=== PATIENT | female | born 1990 | race Caucasian/White ===

== ENCOUNTER 2019-11-01 23:25 | Inpatient (IN) | payer BC ==
[~2019-11-01] VITALS: Ht 154.9 cm; Wt 90.4 kg
--- NOTE | 2019-11-01 23:35 | PHYS DOC ---
Past History Past Medical History: Asthma General Adult EDM: Chief Complaint: ASTHMA HPI: HPI: ".. I am...having....real...problems....with....my..........asthma....." Patient is a 29 year old female who presents with above hx and complaints of asthma exacerbation. Patient seen previously at for similar presentation. Patient does have a history of asthma since age 6. Patient does not know her best peak flow. Patient has been using her asthma meds as directed. Not currently on any steroids. No recent travel. No specific ill contacts. No history immunosuppression. Patient has approximately 1-3 exacerbations per year. No previous episodes of intubation for asthma exacerbations. Patient obviously in respiratory distress with inability to speak in sentences. Is auto peeping. Does have diffuse wheezes throughout and intercostal retractions. Patient remains in a tripod positioning during exam. Patient has somewhat intractable dry nonproductive cough. Review of Systems: Review of Systems: Constitutional: Denies fever or chills Eyes: Denies change in visual acuity HENT: Denies nasal congestion or sore throat Respiratory: Complains of cough and shortness of breath Cardiovascular: Denies chest pain or edema GI: Denies abdominal pain, nausea, vomiting, bloody stools or diarrhea : Denies dysuria Musculoskeletal: Denies back pain or joint pain Integument: Denies rash Neurologic: Denies headache, focal weakness or sensory changes Endocrine: Denies polyuria or polydipsia Lymphatic: Denies swollen glands Psychiatric: Denies depression or anxiety Heart Score: HEART Score for Chest Pain: HEART Score for Chest Pain Response (Comments) Value History Slighlty/Non-Suspicious 0 ECG Nonspecific Repolarizatio 1 Age < 45 0 Risk Factors No Risk Factors 0 Troponin < Normal Limit 0 Total 1 Risk Factors: Risk Factors: DM, Current or recent (<one month) smoker, HTN, HLP, family history of CAD, obesity. Risk Scores: Score 0 - 3: 2.5% MACE over next 6 weeks - Discharge Home Score 4 - 6: 20.3% MACE over next 6 weeks - Admit for Clinical Observation Score 7 - 10: 72.7% MACE over next 6 weeks - Early Invasive Strategies Family History: Family History: Noncontributory to presentation Current Medications: Current Meds: Current Medications Medications (Trade) Dose Ordered Sig/Tamiko Start Time Stop Time Status Last Admin Dose Admin Albuterol Sulfate (Ventolin Hfa Inhaler) 2 puff 1X ONCE 11/01/19 23:45 11/01/19 23:46 UNV Prednisone (Prednisone) 50 mg 1X ONCE 11/01/19 23:45 11/01/19 23:46 UNV Allergies: Allergies: No known drug allergies Physical Exam: PE: Constitutional: Well developed, well nourished, in acute distress, non-toxic appearance. [] HENT: Normocephalic, atraumatic, bilateral external ears normal, oropharynx moist, no oral exudates, nose normal. [] Eyes: PERRLA, EOMI, conjunctiva normal, no discharge. [] Neck: Normal range of motion, no tenderness, supple, no stridor. [] Cardiovascular: Tachycardia heart rate regular rhythm, no murmur [] Lungs & Thorax: Bilateral breath sounds equal apex with scattered wheezing throughout on auscultation [. The patient has] tripod positioning. Intercostal retractions Abdomen: Bowel sounds normal, soft, no tenderness, no masses, no pulsatile masses. [] Skin: Warm, dry, no erythema, no rash. [] Back: No tenderness, no CVA tenderness. [] Extremities: No tenderness, no cyanosis, no clubbing, ROM intact, no edema. [] No cording appreciated Neurologic: Alert and oriented X 3, normal motor function, normal sensory function, no focal deficits noted. [] Psychologic: Affect anxious, judgement normal, mood normal. [] EKG: EKG: My interpretation EKG shows a sinus tachycardia at 110 bpm. Occasional PAC. No findings of acute STEMI of contralateral changes. [] Radiology/Procedures: Radiology/Procedures: [address] [address] IMAGING REPORT Signed PATIENT: SALO BERMUDEZ ACCOUNT: [id number] : 1990 LOCATION: ER AGE: 29 SEX: F EXAM STATUS: REG ER ORD. PHYSICIAN: DEANNA BARTHOLOMEW MD REASON: coughing PROCEDURE: CHEST PA & LATERAL CHEST PA LATERAL INDICATION: coughing COMPARISON STUDY: None. FINDINGS: Lungs: Normal lung volume. Bilateral ill-defined opacities. Pleura: No pleural effusion or pneumothorax. Heart and Mediastinum: The cardiomediastinal silhouette is normal. The great vessels of the thorax are normal. IMPRESSION: Bilateral ill-defined opacities, which may represent an infectious/inflammatory process. Electronically signed by: Luna Lowry MD (11/02/2019 7:07 AM) [id number] DICTATED AND SIGNED BY: LUNA LOWRY MD DATE: 11/02/19706 CC: FELIPE BLAKE MD; DEANNA BARTHOLOMEW MD ~ [][place] [address] IMAGING REPORT Signed PATIENT: SAOL BERMUDEZ ACCOUNT: [id number] : 1990 LOCATION: ER AGE: 29 SEX: F EXAM STATUS: REG ER ORD. PHYSICIAN: DEANNA BARTHOLOMEW MD REASON: COUGH, HYPOXIA, ELEV. D-DIMER, OMNI 350, 75ml PROCEDURE: CT ANGIOGRAPHY CHEST INDICATION: Reason: COUGH, HYPOXIA, ELEV. D-DIMER, OMNI 350, 75ml / Spl. Instructions: / History: COMPARISON: None. TECHNIQUE: Axial CT images obtained through the chest. Intravenous contrast utilized. Angiogram 3D images processed per protocol. One or more of the following individualized dose reduction techniques were utilized for this examination: 1. Automated exposure control; 2. Adjustment of the mA and/or kV according to patient size; 3. Use of iterative reconstruction technique. FINDINGS: Bilateral pulmonic opacities including patchy groundglass and nodular component. No evidence of pneumothorax. There are some scattered prominent lymph nodes in the mediastinum. Ascending thoracic aorta is largely obscured by motion without aneurysm seen in descending thoracic aorta. No embolus in the main, right main or left main pulmonary artery. Nondiagnostic or peripherally secondary to severe motion. Lucency through right third rib anteriorly with some suspected callus formation. IMPRESSION: No embolus in the main, right main or left main pulmonary artery but nondiagnostic more peripherally secondary to severe motion. Multifocal opacities throughout the bilateral lungs which could be secondary to multifocal infiltrate. Viral, atypical as well as bacterial infection could have this appearance. Lucency through right third rib with some suspected callus formation. Correlate with history of trauma to the region since a nondisplaced fracture could have this appearance. Electronically signed by: Tori Bocanegra MD (11/02/2019 4:56 AM) [id number] DICTATED AND SIGNED BY: TORI BOCANEGRA MD DATE: 11/02/19 0456 CC: FELIPE BLAKE MD; DEANNA BARTHOLOMEW MD ~ Course & Med Decision Making: Course & Med Decision Making Pertinent Labs and Imaging studies reviewed. (See chart for details) Patient presentation, testing and treatment plan discussed with Dr. Blake. 00:39 COVID test pending. Plan admission for asthma exacerbation. (Pt.not given a room because fears of nursing shortage with change of shift 0700. ) Pt. still awaiting room assignment at end of my shift 0600. Pt. endorsed to Dr. Chacko if problems before transfer [facility]. Impression: 1. Asthma exacerbation 2. Tachycardia 3. Leukocytosis 13.5 4. Elevated d-dimer 0.99 5. Hypo-magnesium 1.6 6. Elevated direct and total bilirubin 0.3/1.2 7. Viral Pneumonia 8, Respiratory Failure- ( Out pt. tx.failure) []Critical care 50 min. Dragon Disclaimer: Dragon Disclaimer: This electronic medical record was generated, in whole or in part, using a voice recognition dictation system. Departure Departure: Disposition: 01 HOME/RESIDENCE PRIOR TO ADM Condition: STABLE Referrals: FELIPE BLAKE MD (PCP) Justification of Admission: Justification of Admission: Justification of Admission Dx: Yes Comments: Respiratory failure- Asthma Exacerbation Dragon Disclaimer This chart was dictated in whole or in part using Voice Recognition software in a busy, high-work load, and often noisy Emergency Department environment. It may contain unintended and wholly unrecognized errors or omissions. Dragon Disclaimer This chart was dictated in whole or in part using Voice Recognition software in a busy, high-work load, and often noisy Emergency Department environment. It may contain unintended and wholly unrecognized errors or omissions. DEANNA BARTHOLOMEW MD Nov 01, 2019 23:35
[2019-11-01] MEDS ORDERED: ALBUTEROL SULFATE 8GM INHALER. INH ONE (23:45)
[2019-11-01] MEDS ORDERED: methylPREDNISolone SOD SUCC PF 125 MG/2 ML VIAL. ONE (23:51)
[2019-11-01] MEDS ORDERED: diphenhydrAMINE ORAL ELIXIR 12.5 MG/5 ML ML ONE (23:56)
[2019-11-02] MEDS ORDERED: methylPREDNISolone SOD SUCC PF 125 MG/2 ML VIAL. IV ONE
[2019-11-02] MEDS ORDERED: predniSONE 10 MG TABLET PO ONE
[2019-11-02 00:13] LABS: BARBITURATES NEG (NEG); BENZODIAZEPINES NEG (NEG); CANNABINOIDS NEG (NEG); COCAINE NEG (NEG); METHADONE NEG (NEG); OPIATES NEG (NEG); PHENCYCLIDINE NEG (NEG)
[2019-11-02] MEDS ORDERED: diphenhydrAMINE ORAL ELIXIR 12.5 MG/5 ML ML PO ONE (00:15)
[2019-11-02 00:16] LABS: AMPHETAMINE/METHAMPHETAMINE NEG (NEG)
[2019-11-02 00:21] LABS: BASO # 0.1 x10^3/uL (0.0-0.2); BASO % 1 % (0-3); CALCIUM 10.4 mg/dL (8.5-10.1); CREATININE 1.1 mg/dL (0.6-1.0); EOS # 0.7 x10^3/uL (0.0-0.7); EOS % 5 % (0-3); GFR 59.1; HEMATOCRIT 37.6 % (36.0-47.0); HEMOGLOBIN 12.7 g/dL (12.0-15.5); LYMPH # 2.7 x10^3/uL (1.0-4.8); LYMPH % 20 % (24-48); MEAN CORPUSCULAR HEMOGLOBIN 29 pg (25-35); MEAN CORPUSCULAR HGB CONC 34 g/dL (31-37); MEAN CORPUSCULAR VOLUME 87 fL (79-100); MONO # 0.9 x10^3/uL (0.0-1.1); MONO % 7 % (0-9); NEUT # 9.1 x10^3uL (1.8-7.7); NEUT % 67 % (31-73); PLATELET COUNT 259 x10^3/uL (140-400); POTASSIUM 3.5 mmol/L (3.5-5.1); RED BLOOD COUNT 4.34 x10^6/uL (3.50-5.40); RED CELL DISTRIBUTION WIDTH 13.7 % (11.5-14.5); WHITE BLOOD COUNT 13.5 x10^3/uL (4.0-11.0)
[2019-11-02 00:23] LABS: BACTERIA,URINE 0 /HPF (0-FEW); BILIRUBIN,URINE NEG (NEG); CLARITY,URINE HAZY; COLOR,URINE YELLOW; GLUCOSE,URINE NEG (NEG); NITRITE,URINE NEG (NEG); RBC,URINE 0 /HPF (0-2); UROBILINOGEN,URINE 0.2 mg/dL (0.2 mg/dL); WBC,URINE OCC /HPF (0-4)
[2019-11-02 00:24] LABS: SQUAMOUS EPITHELIAL CELL,UR MANY /LPF
[2019-11-02] MEDS ORDERED: IV RINGERS SOLUTION,LACTATED 1,000 ML IV SCH (00:30)
[2019-11-02 00:33] LABS: DIRECT BILIRUBIN 0.3 mg/dL (0.0-0.2); MAGNESIUM 1.7 mg/dL (1.8-2.4); TOTAL BILIRUBIN 1.2 mg/dL (0.2-1.0); TOTAL PROTEIN 7.4 g/dL (6.4-8.2)
[2019-11-02] MEDS ORDERED: AZITHROMYCIN 250 MG TABLET. ONE (00:38)
[2019-11-02] MEDS ORDERED: ONDANSETRON PF 4 MG/2 ML VIAL. IVP PRN (00:45)
[2019-11-02] MEDS ORDERED: ACETAMINOPHEN 325 MG TABLET PO PRN (00:45)
[2019-11-02] MEDS ORDERED: IOHEXOL 350 MG/ML 100 ML VIAL. IV ONE (01:00)
[2019-11-02] MEDS ORDERED: ENOXAPARIN ** NOTE DOSE ** SYRINGE SQ ONE (01:00)
[2019-11-02] MEDS ORDERED: CONTRAST GIVEN. MC PRN (01:00)
[2019-11-02] MEDS ORDERED: ALBUTEROL SULFATE 2.5 MG/3 ML NEBU. NEB PRN (01:00)
[2019-11-02] MEDS ORDERED: MAGNESIUM SULFATE 2GM 50 ML IV ONE (01:00)
[2019-11-02] MEDS ORDERED: AZITHROMYCIN 250 MG TABLET. PO ONE (01:00)
[2019-11-02] MEDS ORDERED: ONDANSETRON PF 4 MG/2 ML VIAL. IVP ONE (01:00)
[2019-11-02] MEDS ORDERED: IPRATRPIUM/ALBUTEROL 0.5/2.5MG 3 ML NEBU. NEB ONE (01:00)
--- NOTE | 2019-11-02 01:09 | EKG ---
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
[2019-11-02 01:54] LABS: INFLUENZA A PATIENT NEGATIVE (NEGATIVE); INFLUENZA B PATIENT NEGATIVE (NEGATIVE)
--- NOTE | 2019-11-02 04:59 | RAD ---
INDICATION: Reason: COUGH, HYPOXIA, ELEV. D-DIMER, OMNI 350, 75ml / Spl. Instructions: / History: COMPARISON: None. TECHNIQUE: Axial CT images obtained through the chest. Intravenous contrast utilized. Angiogram 3D images processed per protocol. One or more of the following individualized dose reduction techniques were utilized for this examination: 1. Automated exposure control; 2. Adjustment of the mA and/or kV according to patient size; 3. Use of iterative reconstruction technique. FINDINGS: Bilateral pulmonic opacities including patchy groundglass and nodular component. No evidence of pneumothorax. There are some scattered prominent lymph nodes in the mediastinum. Ascending thoracic aorta is largely obscured by motion without aneurysm seen in descending thoracic aorta. No embolus in the main, right main or left main pulmonary artery. Nondiagnostic or peripherally secondary to severe motion. Lucency through right third rib anteriorly with some suspected callus formation. IMPRESSION: No embolus in the main, right main or left main pulmonary artery but nondiagnostic more peripherally secondary to severe motion. Multifocal opacities throughout the bilateral lungs which could be secondary to multifocal infiltrate. Viral, atypical as well as bacterial infection could have this appearance. Lucency through right third rib with some suspected callus formation. Correlate with history of trauma to the region since a nondisplaced fracture could have this appearance. Electronically signed by: Lenin Bocanegra MD (11/02/2019 4:56 AM) [id number]
[2019-11-02] MEDS ORDERED: IPRATRPIUM/ALBUTEROL 0.5/2.5MG 3 ML NEBU. ONE (05:17)
[2019-11-02] MEDS: IPRATRPIUM/ALBUTEROL 0.5/2.5MG 3 ML NEBU. NEB SCH ×4 (05:20→20:00)
--- NOTE | 2019-11-02 07:09 | RAD ---
CHEST PA LATERAL INDICATION: coughing COMPARISON STUDY: None. FINDINGS: Lungs: Normal lung volume. Bilateral ill-defined opacities. Pleura: No pleural effusion or pneumothorax. Heart and Mediastinum: The cardiomediastinal silhouette is normal. The great vessels of the thorax are normal. IMPRESSION: Bilateral ill-defined opacities, which may represent an infectious/inflammatory process. Electronically signed by: Ananda Hand MD (11/02/2019 7:07 AM) [id number]
[2019-11-02] MEDS ORDERED: BUDESONIDE 0.5 MG/2 ML NEBU NEB ONE (08:00)
[2019-11-02] MEDS: methylPREDNISolone SOD SUCC PF 125 MG/2 ML VIAL. IV SCH (08:10)
[2019-11-02] MEDS ORDERED: IV NORMAL SALINE 1,000ML 1,000 ML IV ONE (11:15)
[2019-11-02 11:48] LABS: CALCIUM 9.9 mg/dL (8.5-10.1); CREATININE 1.3 mg/dL (0.6-1.0); GFR 48.8; POTASSIUM 4.1 mmol/L (3.5-5.1)
[2019-11-02 13:45] LABS: BGAS PH 7.4 (7.35-7.45)
[2019-11-02 16:55] VITALS: BP 137/78
--- NOTE | 2019-11-02 18:00 | NUR ---
DR. BLAKE NOTIFIED OF PT'S ARRIVAL.
--- NOTE | 2019-11-02 18:09 | NUR ---
The patient, SALO BERMUDEZ, 29 y/o, F admitted by FELIPE BLAKE MD, was given written information regarding hospital policies, unit procedures and contact persons. Valuables were checked and LEFT WITH PATIENT AT BEDSIDE. PT ARRIVED ON 15 L ON A NRB MASK. THEN PT WAS SWITCHED OVER TO 15 L NC TO SEE IF SHE WAS ABLE TO TOLERATE WELL. PT DID TOLERATE WELL AND REMAINED AT 94%. PT'S 02 DECRESED TO 8 L NC AND WILL CTM.
[2019-11-02 19:58] VITALS: BP 110/70
[2019-11-02] MEDS: AZITHROMYCIN 250 MG TABLET. PO SCH (20:44)
[2019-11-03] MEDS: IPRATRPIUM/ALBUTEROL 0.5/2.5MG 3 ML NEBU. NEB SCH ×2 (05:22→21:30)
[2019-11-03 06:20] VITALS: BP 108/74
[2019-11-03 06:23] LABS: BASO % 0 % (0-3); EOS % 0 % (0-3); HEMATOCRIT 35.3 % (36.0-47.0); HEMOGLOBIN 11.7 g/dL (12.0-15.5); LYMPH # 1.9 x10^3/uL (1.0-4.8); LYMPH % 10 % (24-48); MEAN CORPUSCULAR HEMOGLOBIN 29 pg (25-35); MEAN CORPUSCULAR HGB CONC 33 g/dL (31-37); MEAN CORPUSCULAR VOLUME 88 fL (79-100); MONO # 0.9 x10^3/uL (0.0-1.1); MONO % 5 % (0-9); NEUT # 17.2 x10^3uL (1.8-7.7); NEUT % 86 % (31-73); PLATELET COUNT 264 x10^3/uL (140-400); RED BLOOD COUNT 4.01 x10^6/uL (3.50-5.40); RED CELL DISTRIBUTION WIDTH 13.7 % (11.5-14.5); WHITE BLOOD COUNT 20.1 x10^3/uL (4.0-11.0)
[2019-11-03 06:31] LABS: CALCIUM 8.3 mg/dL (8.5-10.1); POTASSIUM 4.3 mmol/L (3.5-5.1)
[2019-11-03 07:17] LABS: % LYMPHS 7 % (24-48); % MONOS 3 % (0-10); % SEGS 90 % (35-66)
[2019-11-03 07:18] LABS: PLT ESTIMATE ADEQUATE (ADEQUATE); TOXIC GRANULATION PRESENT
[2019-11-03 07:19] LABS: POLYCHROMASIA PRESENT
--- NOTE | 2019-11-03 08:10 | NUR ---
patient pending COVID test result, requires contact and airborne precautions.
[2019-11-03] MEDS: methylPREDNISolone SOD SUCC PF 125 MG/2 ML VIAL. IV SCH (08:14)
[2019-11-03] MEDS: LACTOBACILLUS RHAMNOSUS GG 1 CAPSULE. PO SCH ×2 (08:14→20:35)
[2019-11-03] MEDS ORDERED: ALBUTEROL SULFATE 8GM INHALER. INH PRN (09:45)
--- NOTE | 2019-11-03 09:48 | HP ---
ADMIT DATE: 11/03/2019 HISTORY OF PRESENT ILLNESS: A 29-year-old female came in through the Emergency Room. She was extremely short of breath and appeared to be having problems with her asthma. The patient has had asthma since the age of 6 and has had multiple episodes of this. Apparently, she has been evaluated down at for this. She has had no previous intubations needed. The patient was seen for a long time in the ER due to a lack of beds up on the floor. In any case, the patient was noting using accessory muscles and having difficulty breathing and becoming increasingly fatigued with her breathing efforts. PAST MEDICAL HISTORY: Respiratory disease, asthma, pneumonia. Unfortunately, she smokes, smoking cessation 10/29/2019. ALLERGIES: The patient has no known drug allergies. SOCIAL HISTORY: She denies heavy drug use. She does smoke. Denies alcohol. Neurologically stable. She is a full code. REVIEW OF SYSTEMS: Increased shortness of breath, fatigue and using accessory muscles. Denies headaches, visual changes, blurred vision, double vision, chest pain, abdominal pain. Denies any melena, hematochezia or hematemesis and neurologically intact. PHYSICAL EXAMINATION: GENERAL: The patient otherwise on exam is a very pleasant white female, somewhat short of breath with talking. VITAL SIGNS: Blood pressure 110/70, respiratory rate 22, pulse 91, afebrile. HEENT: The patient's head was atraumatic, normocephalic. Eyes: PERRLA without jaundice. The mouth and throat were normal. NECK: Supple, no JVD or thyromegaly. LUNGS: Diminished throughout, poor movement of air with inspiratory and expiratory wheezes. CARDIOVASCULAR: Regular sinus rhythm. She did have a heart rate upwards and close to 120. ABDOMEN: Soft, nontender, no rebound or guarding. Positive bowel sounds, no hepatosplenomegaly noted. EXTREMITIES: No clubbing, cyanosis, nor edema. NEUROLOGIC: The patient was alert and oriented x 3. LABORATORY DATA: CTA negative. Did have a positive D-dimer. The patient also low magnesium 1.7, total bilirubin 1.2, creatinine 5.09. Otherwise, unremarkable. Creatinine up to 1.3, down to 1. Blood sugars a little bit on the high side after steroid use in the Emergency Room where they gave her IV steroids and aggressive pulmonary toilet. She has beta hCG negative, flu and strep negative. Blood gases were reasonable. IMPRESSION: Acute exacerbation of asthma with use of accessory muscles, acute bronchitis with multifocal opacities throughout both lungs. Possible viral atypical, COVID-19 pending. PLAN: Continue on oral MDI inhaler steroids, aggressive pulmonary toilet, make further evaluation on her as indicated. She is not known if she has been around anybody who has had the COVID virus. FELIPE BLAKE MD DR: BREANN/kathleen JOB#: [id number] / [id number]
[2019-11-03 11:00] VITALS: BP 111/74
[2019-11-03] MEDS: ALBUTEROL SULFATE 8GM INHALER. INH SCH ×3 (13:00→20:35)
[2019-11-03 13:55] VITALS: BP 109/77
[2019-11-03] MEDS ORDERED: methylPREDNISolone SOD SUCC PF 40 MG/ML VIAL. IV SCH (14:00)
[2019-11-03 20:22] VITALS: BP 122/79
[2019-11-03] MEDS: AZITHROMYCIN 250 MG TABLET. PO SCH (20:35)
[2019-11-03 23:09] VITALS: BP 100/60
--- NOTE | 2019-11-04 04:09 | NUR ---
Shift Note: Pt a/o x4, VSS with 4 liters oxygen via NC, pt did request humidification d/t nose bleeds, humidification applied, pt feeling more SOA at start of shift, changed scheduled inhaler to duonebs QID per physician orders, inhaler continues to be avail prn. Pt feeling better but continues to have SOA, minimal breath sounds to left side and requires oxygen to maintain saturations >92%. Addendum: 11/04/19 at 0412 by EAGLE JACOBSEN RN hift Note: Pt a/o x4, VSS with 4 liters oxygen via NC, pt did request humidification d/t nose bleeds, humidification applied, pt feeling more SOA at start of shift, changed scheduled inhaler to duonebs QID per physician orders, inhaler continues to be avail prn. Pt feeling better but continues to have SOA, minimal breath sounds to left side and requires oxygen to maintain saturations >92%. Covid results are negative.
[2019-11-04] MEDS: IPRATRPIUM/ALBUTEROL 0.5/2.5MG 3 ML NEBU. NEB SCH ×4 (04:54→20:25)
[2019-11-04 05:42] VITALS: BP 116/74
[2019-11-04 06:16] LABS: BASO % 0 % (0-3); EOS % 0 % (0-3); HEMATOCRIT 34.9 % (36.0-47.0); LYMPH # 2.6 x10^3/uL (1.0-4.8); LYMPH % 18 % (24-48); MEAN CORPUSCULAR HEMOGLOBIN 30 pg (25-35); MEAN CORPUSCULAR HGB CONC 34 g/dL (31-37); MEAN CORPUSCULAR VOLUME 88 fL (79-100); MONO # 0.8 x10^3/uL (0.0-1.1); MONO % 5 % (0-9); NEUT # 11.4 x10^3uL (1.8-7.7); NEUT % 77 % (31-73); PLATELET COUNT 255 x10^3/uL (140-400); RED BLOOD COUNT 3.98 x10^6/uL (3.50-5.40); RED CELL DISTRIBUTION WIDTH 13.8 % (11.5-14.5); WHITE BLOOD COUNT 14.8 x10^3/uL (4.0-11.0)
[2019-11-04 06:23] LABS: CALCIUM 8.6 mg/dL (8.5-10.1); POTASSIUM 4.1 mmol/L (3.5-5.1)
[2019-11-04] MEDS: methylPREDNISolone SOD SUCC PF 40 MG/ML VIAL. IV SCH (08:00)
[2019-11-04] MEDS: LACTOBACILLUS RHAMNOSUS GG 1 CAPSULE. PO SCH ×2 (08:00→20:19)
[2019-11-04] MEDS: ENOXAPARIN 40 MG/0.4 ML SYRINGE. SQ SCH (10:00)
[2019-11-04 11:25] VITALS: BP 145/83
[2019-11-04 15:24] VITALS: BP 144/83
--- NOTE | 2019-11-04 18:22 | NUR ---
PT is still having shortness of breath with exertion, have not been able to titrate oxygen at this point will continue to monitor. Derek LOONEY
--- NOTE | 2019-11-04 18:32 | PN ---
DATE: SUBJECTIVE: A 29-year-old female in with acute exacerbation of asthma, has had multiple bouts of it in the past. She is resting comfortably, but still wheezing, still tight, still requiring 2-3 liters of oxygen. OBJECTIVE: VITAL SIGNS: Otherwise, blood pressure 145/83, respiratory rate 18, pulse 82, afebrile. She is on 4 liters presently at 94%, desaturates when she walks. Still receiving IV Solu-Medrol. White count 14, hemoglobin 12, hematocrit 34. Electrolytes were basically all within range. GENERAL: The patient is alert and oriented. LUNGS: Show expiratory wheezes in all lobes. CARDIOVASCULAR: Regular sinus rhythm. ABDOMEN: Soft, nontender, no rebound or guarding. Positive bowel sounds. No hepatosplenomegaly was noted. EXTREMITIES: No clubbing, cyanosis, nor edema. NEUROLOGIC: The patient is stable. IMPRESSION: Acute exacerbation of chronic obstructive pulmonary disease, asthma with probable multi-lobe pneumonia, COVID-19 negative. Continue to monitor her accordingly and continue with antibiotics and aggressive pulmonary toilet. FELIPE BLAKE MD DR: BREANN/kathleen JOB#: [id number] / [id number]
[2019-11-04 19:28] VITALS: BP 135/81
[2019-11-04] MEDS: AZITHROMYCIN 250 MG TABLET. PO SCH (20:19)
[2019-11-04 23:00] VITALS: BP 105/60
[2019-11-05] MEDS: IPRATRPIUM/ALBUTEROL 0.5/2.5MG 3 ML NEBU. NEB SCH ×4 (05:15→20:55)
[2019-11-05 05:30] VITALS: BP 104/64
[2019-11-05 05:51] LABS: BASO # 0.1 x10^3/uL (0.0-0.2); BASO % 1 % (0-3); EOS % 0 % (0-3); HEMATOCRIT 37.1 % (36.0-47.0); HEMOGLOBIN 12.3 g/dL (12.0-15.5); LYMPH # 4.3 x10^3/uL (1.0-4.8); LYMPH % 34 % (24-48); MEAN CORPUSCULAR HEMOGLOBIN 29 pg (25-35); MEAN CORPUSCULAR HGB CONC 33 g/dL (31-37); MEAN CORPUSCULAR VOLUME 88 fL (79-100); MONO # 0.8 x10^3/uL (0.0-1.1); MONO % 7 % (0-9); NEUT # 7.2 x10^3uL (1.8-7.7); NEUT % 58 % (31-73); PLATELET COUNT 248 x10^3/uL (140-400); RED BLOOD COUNT 4.22 x10^6/uL (3.50-5.40); RED CELL DISTRIBUTION WIDTH 13.7 % (11.5-14.5); WHITE BLOOD COUNT 12.4 x10^3/uL (4.0-11.0)
[2019-11-05 05:58] LABS: CALCIUM 8.5 mg/dL (8.5-10.1); POTASSIUM 3.2 mmol/L (3.5-5.1)
[2019-11-05] MEDS ORDERED: POTASSIUM CHLORIDE 20 MEQ TABLET.ER. PO ONE (07:30)
[2019-11-05] MEDS: ENOXAPARIN 40 MG/0.4 ML SYRINGE. SQ SCH (09:00)
[2019-11-05] MEDS: LACTOBACILLUS RHAMNOSUS GG 1 CAPSULE. PO SCH ×2 (09:02→20:38)
[2019-11-05] MEDS: methylPREDNISolone SOD SUCC PF 40 MG/ML VIAL. IV SCH ×3 (09:02→20:38)
--- NOTE | 2019-11-05 09:49 | NUR ---
Patient was on 1L NC this morning. moved to RA and is currently 93% on RA. Will assess patient ability to walk without oxygen and if able to tolerate O2 above 90%. Pt does not appear to be SOA and states she does not feel SOA. Will continue to monitor.
--- NOTE | 2019-11-05 10:14 | NUR ---
patient 93% RA while resting. Pt attempted to walk down the [place] without oxygen with pulse ox on. pt remained about 91-94% on RA while walking but refused to walk more than 1 minute down the hallway due to dyspnea. Joe LOONEY Addendum: 11/05/19 at 1035 by JERZY MARC RN Dr Kingsley notified
[2019-11-05] MEDS ORDERED: ELECTROLYTE (NON-ICU) PROTOCOL MC PRN (10:30)
--- NOTE | 2019-11-05 10:37 | NUR ---
solumedrol 40mg administered IV around 0900. nonadministered solumedrol dose for 1030 due to recent change from once daily to BID by physician. pt will get second dose of solumedrol tonight. Joe LOONEY
[2019-11-05 11:28] VITALS: BP 117/74
--- NOTE | 2019-11-05 12:19 | NUR ---
Dr Kingsley ordered BLE US for swelling, pt refused stating she is not swollen and does not need this test. A 2-V chest xray also ordered for follow up on patients pneumonia. Pt refusing to wear a mask outside of room per hospital protocol, xray changed to portable. Dr Kingsley aware.
--- NOTE | 2019-11-05 13:21 | RAD ---
Single view chest dated 11/05/2019. Comparison made to 11/02/2019. CLINICAL INDICATION: Shortness of breath. FINDINGS: Single upright portable exam performed. Heart and mediastinal contours are stable. There is patchy airspace disease in the lower lobes, mildly increased. There is also patchy infiltrate at the right perihilar region that has increased. Blunting of the costophrenic sulci. IMPRESSION: 1. Patchy bilateral airspace disease, mildly increased from prior study. 2. Suspected small pleural effusions. Electronically signed by: Douglas Poon MD (11/05/2019 1:18 PM) EDWARDO
[2019-11-05 16:18] VITALS: BP 123/79
--- NOTE | 2019-11-05 18:09 | NUR ---
pt has been taken off oxygen today and on RA. She is tolerating well, o2 sat at 93%. although pt refused to walk more than a minute down the hallway this morning, will pass on to retry again tomorrow for the 6 minute walk test to see how patient tolerates that. Joe LOONEY
--- NOTE | 2019-11-05 18:34 | PN ---
DATE: 11/05/2019 SUBJECTIVE: A 29-year-old female in with acute exacerbation of her asthma. She continues to have shortness of breath. She is improved; however, she still continues to have significant difficulty in moving without becoming increasingly weakened and hypoxic. The patient in turn has had aggressive therapy. She is on steroids. Her COVID-19 was negative. Her nose culture was basically unremarkable as well, although her chest x-ray showed infiltrates consistent with pneumonia. We will repeat that today. OBJECTIVE: VITAL SIGNS: Blood pressure 104/64, respiratory rate 16, pulse 69. GENERAL: Afebrile, oxygen saturation on room air approximately 91% and extremely weak, had to be held up by the wall to maintain her balance. We will continue to monitor the patient accordingly, get a repeat chest x-ray. Continue on antibiotics, aggressive pulmonary toilet. LUNGS: Diminished throughout, poor movement of air, although improved, still show poor movement of air. CARDIOVASCULAR: Regular sinus rhythm. Otherwise, alert and oriented. NEUROLOGIC: Speech fluent, spontaneous, appropriate. PLAN: Continue to monitor the patient accordingly and make further evaluation on her as indicated. IMPRESSION: Acute exacerbation of chronic obstructive pulmonary disease, asthma, type with pneumonitis of unknown etiology. FELIPE BLAKE MD DR: BREANN/kathleen JOB#: [id number] / [id number]
[2019-11-05 19:00] VITALS: BP 133/86
[2019-11-05] MEDS: AZITHROMYCIN 250 MG TABLET. PO SCH (20:38)
[2019-11-05 22:14] VITALS: BP 142/85
[2019-11-06] MEDS: IPRATRPIUM/ALBUTEROL 0.5/2.5MG 3 ML NEBU. NEB SCH (04:58)
[2019-11-06 05:58] VITALS: BP 138/86
--- NOTE | 2019-11-06 06:10 | NUR ---
Pt took shower at change of shift, Pt c/o SOA with exertion but maintained O2 sat on room air. Pt did wear mask outside of room to shower and back but complained that it is hard to wear. Pt encouraged to ambulate in room and completed 6 min walk prior to DC. Pt slept a few hours during night but up often in room with staff entered room. Pt hopeful for DC home today.
[2019-11-06] MEDS: LACTOBACILLUS RHAMNOSUS GG 1 CAPSULE. PO SCH (08:21)
[2019-11-06] MEDS: methylPREDNISolone SOD SUCC PF 40 MG/ML VIAL. IV SCH (08:21)
[2019-11-06] MEDS ORDERED: ALBU8HFA2 INH (09:15)
[2019-11-06] MEDS ORDERED: AZIT250T6 PO (09:15)
[2019-11-06] MEDS ORDERED: PRED-220 PO ×2 (09:15)
[2019-11-06] MEDS ORDERED: IPRA3AMP29 NEB (09:15)
--- NOTE | 2019-11-06 09:16 | DISCH ---
DISCHARGE ORDERS DISCHARGE MEDICATIONS: Home Meds Active Scripts Prednisone (PREDNISONE) 10 Mg Tablet, 40 MG PO UD for PREDNISONE TAPER for 12 Days, #39 TAB 0 Refills Take 3 tablets by mouth twice a day for 3 days, then take 2 tablets by mouth twice a day for 3 days, then take 1 tablet by mouth twice a day for 3 days, then take 1 tablet by mouth daily x 3 days, then stop. Prov:FELIPE BLAKE MD 11/06/19 Prednisone (PREDNISONE) 10 Mg Tablet, 10 MG PO DAILY for asthma for 28 Days, #28 TAB Prov:FELIPE BLAKE MD 11/06/19 Albuterol Sulfate (Ventolin Hfa) 8 Gm Hfa.aer.ad, 2 PUFF INH PRN Q4HRS PRN for SOA for 30 Days, #1 INHALER 3 Refills Prov:FELIPE BLAKE MD 11/06/19 Ipratropium/Albuterol Sulfate (DUONEB 0.5-3(2.5) MG/3 ML) 3 Ml Ampul.neb, 3 ML NEB RTQID for asthma for 30 Days, #120 EACH 2 Refills Prov:FELIPE BLAKE MD 11/06/19 Azithromycin (AZITHROMYCIN TABLET) 250 Mg Tablet, 250 MG PO QHS for pneumonia for 3 Days, #3 TAB Prov:FELIPE BLAKE MD 11/06/19 FELIPE BLAKE MD Nov 06, 2019 09:16
--- NOTE | 2019-11-06 10:07 | NUR ---
Pt discharging, agrees with discharge plan. Scripts given to patient. IV out, belongings with patient. Pt escorted via wheelchair to front entrance where everardo was waiting to provide transportation.
== END 2019-11-06 10:05 | disposition home or self-care (01) | DRG 193 ==
LOC: ER 23:25 → 1 SOUTH 11-02 00:30
PROVIDERS: ADMIT Family Medicine; ATTEND Family Medicine
DX: J18.9 Pneumonia, unspecified organism (principal); J96.91 Respiratory failure, unspecified with hypoxia; J44.0 Chronic obstructive pulmonary disease with (acute) lower respiratory infection; J44.1 Chronic obstructive pulmonary disease with (acute) exacerbation; J45.901 Unspecified asthma with (acute) exacerbation; E83.42 Hypomagnesemia; F17.200 Nicotine dependence, unspecified, uncomplicated; J20.9 Acute bronchitis, unspecified; Z20.828 Contact with and (suspected) exposure to other viral communicable diseases
CPT/HCPCS: 36415; 71045; 71046; 71275; 80048; 80076; 80307; 81001; 81025; 82550; 82803; 83690; 83735; 83880; 84443; 84484; 85007; 85025; 85379; 85610; 85730; 86738; 87070; 87086; 87804; 87880; 93005; 94640; 94760; 96361; 96374; J0456; J0696; J1650; J2405; J2920; J2930; J3475; J7120; J7512; J7613; Q9967; 94664; 99291-25; J7030; U0003-CS

== ENCOUNTER 2020-01-18 21:20 | Emergency (ER) | payer BC ==
[~2020-01-18] VITALS: Ht 154.9 cm; Wt 95.2 kg
[~2020-01-18 21:20] MED LIST: ALBU8HFA2 INH; AZIT250T6 PO; IPRA3AMP29 NEB; PRED-220 PO
--- NOTE | 2020-01-18 21:55 | PHYS DOC ---
Past History Past Medical History: Asthma Past Surgical History: No Surgical History Alcohol Use: None Adult General Chief Complaint Chief Complaint: SHORTNESS OF BREATH HPI HPI Patient is a 29-year-old female who presents with wheezing. Patient has longstanding history of asthma with numerous exacerbations a year, she has never been intubated in the past. Patient recently saw her primary care physician who prescribed short-term steroid burst which along with current albuterol inhaler and nebulizer, resolved her episode of acute asthma exacerbation approximately 1 month ago. Nonetheless, patient admits 4 days of worsening shortness of breath and audible wheezes. Albuterol makes better, nothing known makes worse. Patient describes feelings of chest tightness and inability to take a deep breath due to wheezing, has been afebrile without a productive cough. She denies any COVID-19 contacts. Review of Systems Review of Systems Fourteen body systems of review of systems have been reviewed. See HPI for pertinent positives and negative responses, other peter all other systems are negative, non-pertinent or non-contributory Current Medications Current Medications Current Medications Medications (Trade) Dose Ordered Sig/Tamiko Start Time Stop Time Status Last Admin Dose Admin Albuterol/ Ipratropium (Duoneb) 3 ml 1X ONCE 01/18/20 22:00 01/18/20 22:01 Prednisone (Prednisone) 50 mg 1X ONCE 01/18/20 22:00 01/18/20 22:01 Allergies Allergies Allergies Coded Allergies Type Severity Reaction Last Updated Verified No Known Drug Allergies 11/01/19 No Physical Exam Physical Exam Constitutional: Well developed, well nourished, no acute distress, non-toxic appearance. HENT: Normocephalic, atraumatic, bilateral external ears normal, oropharynx moist, no oral exudates, nose normal. Eyes: PERRLA, EOMI, conjunctiva normal, no discharge. Neck: Normal range of motion, no tenderness, supple, no stridor. Cardiovascular: Heart rate regular, sinus rhythm, no murmurs rubs or gallops Lungs & Thorax: No obvious respiratory distress, no accessory muscle usage, audible wheezing without auscultation, decreased air movements in bilateral lungs with minimal end expiratory wheezes in bilateral upper lobes Abdomen: Bowel sounds normal, soft, no tenderness, no masses, no pulsatile masses. Nonsurgical abdomen, no peritoneal signs Skin: Warm, dry, no erythema, no rash. Back: No tenderness, no CVA tenderness. Extremities: No tenderness, no cyanosis, no clubbing, ROM intact, no edema. Neurologic: Alert and oriented X 3, grossly normal motor & sensory function, no focal deficits noted. Psychologic: Affect normal, judgement normal, mood normal. Current Patient Data Vital Signs Vital Signs Date Time Temp Pulse Resp B/P (MAP) Pulse Ox O2 Delivery O2 Flow Rate FiO2 01/18/20 22:09 95 Nasal Cannula 01/18/20 21:20 97.6 111 22 166/99 (121) EKG EKG EKG ordered and evaluated by myself at 2154 hrs. as sinus tachycardia at 105 bpm, unremarkable intervals, no axis deviation, no acute ischemic findings, no STEMI Radiology/Procedures Radiology/Procedures PROCEDURE: CHEST PA & LATERAL Exam: Chest 2 view INDICATION: Shortness of breath, wheezing TECHNIQUE: Frontal and lateral views the chest Comparisons: 11/05/2019 FINDINGS: The cardiomediastinal silhouette and pulmonary vessels are within normal limits. Patchy bibasilar airspace disease particularly in the right mid and lower lung. IMPRESSION: Patchy bibasilar airspace disease. Electronically signed by: Lilia Edwards MD (01/18/2020 10:39 PM) [facility] Course & Med Decision Making Course & Med Decision Making Ambulatory and well-appearing patient seen on immediate ER arrival ABCs grossly nonconcerning Comprehensive history and physical exam obtained, subsequent diagnostic work-up ordered and reviewed 40 mg p.o. prednisone and x1 DuoNeb treatment administered with significant relief in symptomology Discussed most likely diagnosis of asthma exacerbation but there is clinical concern for pneumonia given history and radiographic findings of patchy infiltrates I discussed this might be an acute presentation of more concerning pathology and stressed importance of close PCP follow-up. She would benefit from reviewed pulmonary function testing performed at [facility] in July. I am sending patient home with 5-day 40 mg prednisone burst and 5-day course of azithromycin. I feel after this, patient would benefit from starting a maintenance inhaler daily for her asthma at the discretion of her PCP Strict return precautions were discussed with good understanding by patient, all questions and concerns addressed prior to ER departure in stable condition Dragon Disclaimer Dragon Disclaimer This electronic medical record was generated, in whole or in part, using a voice recognition dictation system. Departure Departure: Impression: Primary Impression: Pneumonia Additional Impression: Asthma Disposition: 01 DC HOME SELF CARE/HOMELESS Condition: STABLE Referrals: FELIPE BLAKE MD (PCP) Patient Instructions: Asthma, Adult, Pneumonia, Adult Additional Instructions: As discussed prior to ER departure, please call your primary care physician first thing tomorrow morning for outpatient follow-up in upcoming 1 to 5 days time Please take antibiotic and steroid prescriptions daily as instructed to complet ion As discussed, you would benefit from review of recently performed pulmonary function testing and implementation of maintenance inhaler at your PCPs discretion Strict return precautions were discussed, if any concerning signs or symptoms arise please do not hesitate to call and/or represent to our ER for evaluation It was a pleasure to take care of you this evening and I wish you a speedy recovery Scripts Prednisone (PREDNISONE) 20 Mg Tablet 40 MG PO DAILY for bronchitis for 5 Days, #10 TAB Prov: ROMERO WILLINGHAM DO 01/18/20 Azithromycin (AZITHROMYCIN TABLET) 250 Mg Tablet 250 MG PO DAILY for ANTI-BIOTIC for 4 Days, #4 TAB 0 Refills Prov: ROMERO WILLINGHAM DO 01/18/20 Problem Qualifiers ROMERO WILLINGHAM DO Jan 18, 2020 21:55
[2020-01-18] MEDS ORDERED: IPRATRPIUM/ALBUTEROL 0.5/2.5MG 3 ML NEBU. NEB ONE (22:00)
[2020-01-18] MEDS ORDERED: predniSONE 10 MG TABLET PO ONE (22:00)
--- NOTE | 2020-01-18 22:42 | RAD ---
Exam: Chest 2 view INDICATION: Shortness of breath, wheezing TECHNIQUE: Frontal and lateral views the chest Comparisons: 11/05/2019 FINDINGS: The cardiomediastinal silhouette and pulmonary vessels are within normal limits. Patchy bibasilar airspace disease particularly in the right mid and lower lung. IMPRESSION: Patchy bibasilar airspace disease. Electronically signed by: Lilia Edwards MD (01/18/2020 10:39 PM) YOLANDA
--- NOTE | 2020-01-18 22:50 | EKG ---
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
[2020-01-18] MEDS ORDERED: AZIT250T6 PO (22:56)
[2020-01-18 23:00] VITALS: BP 124/69
[2020-01-18] MEDS ORDERED: AZITHROMYCIN 250 MG TABLET. PO ONE (23:00)
[2020-01-18] MEDS ORDERED: PRED20TA PO (23:18)
== END 2020-01-18 23:20 | disposition home or self-care (01) ==
LOC: ER 21:20
DX: J18.9 Pneumonia, unspecified organism (principal); J45.909 Unspecified asthma, uncomplicated
CPT/HCPCS: 71046; 81025; 93005; 94640; 99283; J0456; J7512

== ENCOUNTER 2021-06-13 12:16 | Emergency (ER) | payer BC, OTHER ==
[~2021-06-13] VITALS: Ht 154.9 cm; Wt 91.1 kg
[~2021-06-13 12:16] MED LIST changes: +PRED20TA PO
[2021-06-13 12:32] VITALS: BP 135/89
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
== END 2021-06-13 14:16 | disposition home or self-care (01) ==
LOC: ER 12:16
DX: S00.83XA Contusion of other part of head, initial encounter (principal); M54.59 Other low back pain; M54.6 Pain in thoracic spine; J45.909 Unspecified asthma, uncomplicated; V49.59XA Passenger injured in collision with other motor vehicles in traffic accident, initial encounter; Y93.89 Activity, other specified; Y92.89 Other specified places as the place of occurrence of the external cause; Y99.8 Other external cause status
CPT/HCPCS: 70450; 72125; 72128; 72131; 73110; 81025; 99284